=== PATIENT | male | born 1965 | race Native Hawaiian/Other Pacific Islander ===

== ENCOUNTER 2019-07-14 09:48 | Outpatient (CLI) | payer BC ==
[2019-07-14 10:16] LABS: PLATELET COUNT 268 K/uL (142-355)
== END 2019-07-14 21:19 | disposition home or self-care (01) ==
LOC: LABW 09:48
PROVIDERS: Internal Medicine
DX: J02.9 Acute pharyngitis, unspecified (principal)
CPT/HCPCS: 36415; 85027; 85651; 86308